=== PATIENT | male | born 1960 | race Caucasian/White ===

== ENCOUNTER 2018-09-15 11:34 | Day surgery (SDC) | payer BC, OTHER ==
[2018-09-13 16:00] VITALS: BMI 37.5
[~2018-09-15 11:34] MED LIST: LACTATED RINGERS 1,000 ML IV SCH
[2018-09-15 12:00] VITALS: TEMP 98
[2018-09-15] MEDS ORDERED: LIDOCAINE 1% 20 ML VIAL (10MG/ML) FOR IV START INTRADERMA ONE (12:02)
[2018-09-15] MEDS ORDERED: PROPOFOL 10 MG/ML 20 ML VIAL IV ONE (12:19)
--- NOTE | 2018-09-15 12:52 | P.PCN ---
Date of Procedure: 09/15/18 Procedure(s) Performed: Procedure: Total colonoscopy. Preoperative diagnosis: Screening for neoplasia, patient has history of anal fissure and rectal bleeding. Postoperative diagnosis: Mild sigmoid diverticulosis with no evidence of acute diverticulitis, strictures, significant polyps or tumors. Preparation: HalfLytely prep. Sedation: Was provided by anesthesia. Brief clinical history: The patient is a 58-year-old male who is scheduled for this evaluation for screening for neoplasia. No family history of colon cancer. He has history of intermittent rectal bleeding and anal fissure. He had no prior colonoscopy. Procedure: With the patient on his left lateral decubitus position and after informed consent and adequate sedation, the perianal area was inspected and it did show a very superficial posterior fissures as not bleeding at the time of this exam, and there was a nondraining fistulous opening posteriorly in the midline in the gluteal area. The were no masses felt on digital rectal examination. The Olympus CFH 190L video colonoscope was then inserted in the rectum in the usual fashion and advanced to the cecum. I intubated the ileocecal valve and examined the terminal ileum. Terminal ileum and colon appeared healthy. There were few scattered diverticular orifices seen in the sigmoid with no evidence of acute diverticulitis or strictures. I retroflexed the endoscope in the rectum before the endoscope was withdrawn. The patient tolerated the procedure well. Plan: The patient was reassured. Discussed dietary measures. He will follow up with you as planned and I recommended repeat exam in 10 years. I will see him in follow-up with his symptoms recur.
[2018-09-15 13:34] VITALS: BP 127/87; PULSE 80; RESP 18
== END 2018-09-15 13:47 | disposition home or self-care (01) ==
LOC: ORWHC2ENDO 11:34
DX: K62.5 Hemorrhage of anus and rectum (principal); Z87.19 Personal history of other diseases of the digestive system; I10 Essential (primary) hypertension; E78.5 Hyperlipidemia, unspecified; K57.30 Diverticulosis of large intestine without perforation or abscess without bleeding; E66.9 Obesity, unspecified; Z68.37 Body mass index [BMI] 37.0-37.9, adult; Z79.82 Long term (current) use of aspirin; Z79.899 Other long term (current) drug therapy
CPT/HCPCS: 45378; J2704

== ENCOUNTER 2023-08-06 13:01 | Emergency (ER) | payer BC ==
--- NOTE | 2023-08-06 13:23 | ED ---
General Adult HPI - General Chief complaint: Shortness of Breath Stated complaint: Dyspnea Time Seen by Provider: 08/06/23 13:08 Source: patient, RN notes reviewed Mode of arrival: ambulatory Limitations: no limitations - History of Present Illness Initial comments: Patient is a pleasant 62-year-old male present to the emergency department cough and dyspnea. Onset of symptoms was over a month ago. Patient has gained approximately 40 pounds in the last 2 to 3 months. Patient does have leg edema. Patient has orthopnea and exertional dyspnea. No chest pain. No history of similar symptoms previously. - Related Data Home Medications Medication Instructions Recorded Confirmed Aspirin [Adult Low Dose Aspirin EC] 81 mg PO DAILY 09/13/18 09/13/18 Diclofenac Sodium [Voltaren] 75 mg PO BID 09/13/18 09/13/18 Losartan Potassium 100 mg PO DAILY 09/13/18 09/13/18 Simvastatin [Zocor] 20 mg PO HS 09/13/18 09/13/18 amLODIPine [Norvasc] 5 mg PO DAILY 09/13/18 09/13/18 Previous Rx's Medication Instructions Recorded Furosemide [Lasix] 40 mg PO DAILY #5 tablet 08/06/23 Allergies Allergy/AdvReac Type Severity Reaction Status Date / Time No Known Allergies Allergy Verified 07/28/22 08:51 Review of Systems ROS Statement: Those systems with pertinent positive or pertinent negative responses have been documented in the HPI. ROS Other: All systems not noted in ROS Statement are negative. Constitutional: Denies: fever Eyes: Denies: eye pain ENT: Denies: ear pain Respiratory: Reports: as per HPI Cardiovascular: Reports: as per HPI, dyspnea on exertion, orthopnea, edema Gastrointestinal: Denies: vomiting Past Medical History Past Medical History: Hyperlipidemia, Hypertension Additional Past Medical History / Comment(s): Arthritis History of Any Multi-Drug Resistant Organisms: None Reported Past Surgical History: Orthopedic Surgery Additional Past Surgical History / Comment(s): ORIF RT ANKLE Past Anesthesia/Blood Transfusion Reactions: No Reported Reaction Past Psychological History: No Psychological Hx Reported Smoking Status: Former smoker Past Alcohol Use History: Occasional Past Drug Use History: None Reported - Past Family History Mother Family Medical History: Cancer Brother(s) Family Medical History: Cancer General Exam Limitations: no limitations General appearance: alert, in no apparent distress Head exam: Present: normocephalic Eye exam: Present: normal appearance Neck exam: Present: normal inspection Respiratory exam: Present: decreased breath sounds Cardiovascular Exam: Present: regular rate, normal rhythm GI/Abdominal exam: Present: soft. Absent: tenderness Extremities exam: Present: pedal edema. Absent: calf tenderness Neurological exam: Present: alert Psychiatric exam: Present: normal affect, normal mood Skin exam: Present: normal color Course Vital Signs 08/06/23 13:04 Temperature 98.2 F Pulse Rate 70 Respiratory 18 Rate Blood Pressure 148/88 O2 Sat by Pulse 94 L Oximetry EKG Findings - EKG Results: EKG: interpreted by ERMD (Left axis. Septal Q waves. Wide-complex QRS.), sinus rhythm, normal ST/T Medical Decision Making - Medical Decision Making Was pt. sent in by a medical professional or institution (TERRIE Maurer, CHIEF SCIENCE OFFICER, urgent care, hospital, or senior care...) When possible be specific @ -No Did you speak to anyone other than the patient for history (EMS, parent, family, police, friend...)? What history was obtained from this source @ -Family is present helps provide history including weight gain Did you review nursing and triage notes (agree or disagree)? Why? @ -I reviewed and agree with nursing and triage notes Were old charts reviewed (outside hosp., previous admission, EMS record, old EKG, old radiological studies, urgent care reports/EKG's, senior care records)? Report findings @ -No old charts were reviewed Differential Diagnosis (chest pain, altered mental status, abdominal pain women, abdominal pain men, vaginal bleeding, weakness, fever, dyspnea, syncope, headache, dizziness, GI bleed, back pain, seizure, CVA, palpatations, mental health, musculoskeletal)? @ -Differential Dyspnea: Coronary syndrome, arrhythmia, tamponade, asthma, COPD, pulmonary embolism, pneumonia, pneumothorax, pulmonary effusion, anaphylaxis, diabetic ketoacidosis, flailed chest, pulmonary contusion, diaphragmatic rupture, anemia, neuromuscular, this is not meant to be an all-inclusive list. EKG interpreted by me (3pts min.). @ -As above X-rays interpreted by me (1pt min.). @ -Chest x-ray shows no acute process CT interpreted by me (1pt min.). @ -None done U/S interpreted by me (1pt. min.). @ -None done What testing was considered but not performed or refused? (CT, X-rays, U/S, labs)? Why? @ -None What meds were considered but not given or refused? Why? @ -None Did you discuss the management of the patient with other professionals (professionals i.e. , PA, CHIEF SCIENCE OFFICER, lab, RT, psych nurse, outreach and education social worker, atomic fuel assembler, teacher, training systems officer, pillowcase cleaner)? Give summary @ -No Was smoking cessation discussed for >3mins.? @ -No Was critical care preformed (if so, how long)? @ -No Were there social determinants of health that impacted care today? How? (Homelessness, low income, unemployed, alcoholism, drug addiction, transportation, low edu. Level, literacy, decrease access to med. care, longterm, rehab)? @ -No Was there de-escalation of care discussed even if they declined (Discuss DNR or withdrawal of care, Hospice)? DNR status @ -Discussion regarding hospital admission however patient refuses stating he feels much better. Patient would like to go home and follow-up with his doctor What co-morbidities impacted this encounter? (DM, HTN, Smoking, COPD, CAD, Cancer, CVA, ARF, Chemo, Hep., AIDS, mental health diagnosis, sleep apnea, morbid obesity)? @ -None Was patient admitted / discharged? Hospital course, mention meds given and route, prescriptions, significant lab abnormalities, going to OR and other pertinent info. @ -Patient reevaluated and feels significantly better following Lasix. Patient states his breathing is doing well. Pulse ox 95% on room air. Patient and f wesy are updated on results. Patient does request discharge home. Undiagnosed new problem with uncertain prognosis? @ -No Drug Therapy requiring intensive monitoring for toxicity (Heparin, Nitro, Insulin, Cardizem)? @ -No Were any procedures done? @ -No Diagnosis/symptom? @ -edema Acute, or Chronic, or Acute on Chronic? @ -Acute Uncomplicated (without systemic symptoms) or Complicated (systemic symptoms)? @ -Default Side effects of treatment? @ -No Exacerbation, Progression, or Severe Exacerbation? @ -No Poses a threat to life or bodily function? How? (Chest pain, USA, CA, pneumonia, PE, COPD, DKA, ARF, appy, cholecystitis, CVA, Diverticulitis, Homicidal, Suicidal, threat to staff... and all critical care pts) @ -No - Lab Data Result diagrams: 08/06/23 13:27 08/06/23 13:27 Lab Results 08/06/23 08/06/23 08/06/23 Range/Units 13:27 13:27 13:27 WBC 7.9 (3.8-10.6) k/uL RBC 4.50 (4.30-5.90) m/uL Hgb 13.9 (13.0-17.5) gm/dL Hct 42.7 (39.0-53.0) % MCV 95.0 (80.0-100.0) fL MCH 31.0 (25.0-35.0) pg MCHC 32.6 (31.0-37.0) g/dL RDW 13.6 (11.5-15.5) % Plt Count 255 (150-450) k/uL MPV 7.5 Neutrophils % 63 % Lymphocytes % 22 % Monocytes % 5 % Eosinophils % 5 % Basophils % 1 % Neutrophils # 5.0 (1.3-7.7) k/uL Lymphocytes # 1.8 (1.0-4.8) k/uL Monocytes # 0.4 (0-1.0) k/uL Eosinophils # 0.4 (0-0.7) k/uL Basophils # 0.1 (0-0.2) k/uL PT 10.1 (10.0-12.5) sec INR 0.9 (<1.2) APTT 26.9 (22.0-30.0) sec Sodium 143 (137-145) mmol/L Potassium 4.7 (3.5-5.1) mmol/L Chloride 107 (98-107) mmol/L Carbon Dioxide 28 (22-30) mmol/L Anion Gap 8 mmol/L BUN 22 H (9-20) mg/dL Creatinine 0.85 (0.66-1.25) mg/dL Est GFR (CKD-EPI)AfAm >90 (>60 ml/min/1.73 sqM) Est GFR (CKD-EPI)NonAf >90 (>60 ml/min/1.73 sqM) Glucose 93 (74-99) mg/dL Calcium 9.5 (8.4-10.2) mg/dL Magnesium 2.0 (1.6-2.3) mg/dL Total Bilirubin 0.7 (0.2-1.3) mg/dL AST 32 (17-59) U/L ALT 30 (4-49) U/L Alkaline Phosphatase 54 (38-126) U/L Troponin I (0.000-0.034) ng/mL NT-Pro-B Natriuret Pep 592 pg/mL Total Protein 7.2 (6.3-8.2) g/dL Albumin 4.5 (3.5-5.0) g/dL 08/06/23 Range/Units 13:27 WBC (3.8-10.6) k/uL RBC (4.30-5.90) m/uL Hgb (13.0-17.5) gm/dL Hct (39.0-53.0) % MCV (80.0-100.0) fL MCH (25.0-35.0) pg MCHC (31.0-37.0) g/dL RDW (11.5-15.5) % Plt Count (150-450) k/uL MPV Neutrophils % % Lymphocytes % % Monocytes % % Eosinophils % % Basophils % % Neutrophils # (1.3-7.7) k/uL Lymphocytes # (1.0-4.8) k/uL Monocytes # (0-1.0) k/uL Eosinophils # (0-0.7) k/uL Basophils # (0-0.2) k/uL PT (10.0-12.5) sec INR (<1.2) APTT (22.0-30.0) sec Sodium (137-145) mmol/L Potassium (3.5-5.1) mmol/L Chloride (98-107) mmol/L Carbon Dioxide (22-30) mmol/L Anion Gap mmol/L BUN (9-20) mg/dL Creatinine (0.66-1.25) mg/dL Est GFR (CKD-EPI)AfAm (>60 ml/min/1.73 sqM) Est GFR (CKD-EPI)NonAf (>60 ml/min/1.73 sqM) Glucose (74-99) mg/dL Calcium (8.4-10.2) mg/dL Magnesium (1.6-2.3) mg/dL Total Bilirubin (0.2-1.3) mg/dL AST (17-59) U/L ALT (4-49) U/L Alkaline Phosphatase (38-126) U/L Troponin I 0.012 (0.000-0.034) ng/mL NT-Pro-B Natriuret Pep pg/mL Total Protein (6.3-8.2) g/dL Albumin (3.5-5.0) g/dL Disposition Clinical Impression: Edema Disposition: HOME SELF-CARE Condition: Stable Instructions (If sedation given, give patient instructions): Heart Failure (ER), Leg Edema (ED), Edema (ED) Additional Instructions: Please do follow-up with primary care physician beginning of the week. Return for chest pain, difficulty breathing, fever, worsening or changing symptoms, increased welling or other concerns. Prescription sent to pharmacy. Prescriptions: Furosemide [Lasix] 40 mg PO DAILY #5 tablet Is patient prescribed a controlled substance at d/c from ED?: No Referrals: Jonnie Oakley DO [Primary Care Provider] - 1-2 days Time of Disposition: 14:51
[2023-08-06 13:28] VITALS: RESP 18; TEMP 98.2
[2023-08-06 13:39] LABS: Basophils # (A) 0.1 k/uL (0-0.2); Basophils % (A) 1 %; Eosinophils # (A) 0.4 k/uL (0-0.7); Eosinophils % (A) 5 %; HCT 42.7 % (39.0-53.0); HGB 13.9 gm/dL (13.0-17.5); Lymphocytes # (A) 1.8 k/uL (1.0-4.8); Lymphocytes % (A) 22 %; MCHC 32.6 g/dL (31.0-37.0); Mean Platelet Volume 7.5; Monocytes # (A) 0.4 k/uL (0-1.0); Monocytes % (A) 5 %; Neutrophils % (A) 63 %; Platelet Count 255 k/uL (150-450); RDW 13.6 % (11.5-15.5); WBC 7.9 k/uL (3.8-10.6)
[2023-08-06 13:49] LABS: INR 0.9 (<1.2); Partial Thromboplastin Time 26.9 sec (22.0-30.0); Prothrombin Time 10.1 sec (10.0-12.5)
[2023-08-06] MEDS: FUROSEMIDE 10 MG/ML 4 ML VIAL IV STA (13:49)
[2023-08-06] MEDS: NITROGLYCERIN OINT 1 INCH/GM PACKET TOPICAL STA (13:50)
[2023-08-06 13:59] LABS: ALT 30 U/L (4-49); AST 32 U/L (17-59); African American GFR (CKD) >90 (>60 ml/min/1.73 sqM); Albumin 4.5 g/dL (3.5-5.0); Alkaline Phosphatase 54 U/L (38-126); Anion Gap 8 mmol/L; Blood Urea Nitrogen 22 mg/dL (9-20); Calcium 9.5 mg/dL (8.4-10.2); Carbon Dioxide 28 mmol/L (22-30); Chloride 107 mmol/L (98-107); Glucose 93 mg/dL (74-99); Non-African American GFR(CKD) >90 (>60 ml/min/1.73 sqM); Potassium 4.7 mmol/L (3.5-5.1); Sodium 143 mmol/L (137-145); Total Bilirubin 0.7 mg/dL (0.2-1.3); Total Protein 7.2 g/dL (6.3-8.2)
[2023-08-06 14:05] LABS: NT-Pro-B-Type Natriuretic Pept 592 pg/mL
--- NOTE | 2023-08-06 14:39 | XR ---
EXAMINATION TYPE: XR chest 2V DATE OF EXAM: 08/06/2023 COMPARISON: NONE HISTORY: Difficulty breathing. TECHNIQUE: Frontal and lateral views of the chest are obtained. FINDINGS: There is no focal air space opacity, pleural effusion, or pneumothorax seen. The cardiac silhouette size is within normal limits. The osseous structures are intact. IMPRESSION: No acute cardiopulmonary process.
[2023-08-06 15:40] VITALS: BP 146/89; PULSE 69
== END 2023-08-06 15:11 | disposition home or self-care (01) ==
LOC: EC 13:01
DX: R60.0 Localized edema (principal); R06.02 Shortness of breath; R05.9 Cough, unspecified; I10 Essential (primary) hypertension; E78.5 Hyperlipidemia, unspecified; Z79.82 Long term (current) use of aspirin; Z79.899 Other long term (current) drug therapy; Z87.891 Personal history of nicotine dependence
CPT/HCPCS: 36415; 93005; 83880; 80053; 83605; 83735; 84484; 85025; 85610; 85730; 71046; 99285; 96374; J1940

== ENCOUNTER → 2023-08-24 | Outpatient (CLI) | payer BC ==
--- NOTE | 2023-08-24 13:50 | CA ---
Transthoracic Echo Report Name: Antwan Tam Age: 63 Gender: M : 1960 Exam Date: 08/24/2023 09:06 Exam Location: [place] Echo Ht (in): 68 Wt (lb): 275 Ordering Physician: Jonnie Oakley DO Attending/Referring Phys: Lizzie Henriquez [facility] Fashion Consultant Selling Dharmesh Bui RDCS Procedure CPT: Indications: R06.09 Other forms of dyspnea Cardiac Hx: Technical Quality: Technically difficult study Contrast 1: Definity Total Dose (mL): 3 Contrast 2: Total Dose (mL): MEASUREMENTS (Male / Female) Normal Values 2D ECHO LV Diastolic Diameter PLAX 5.8 cm 4.2 - 5.9 / 3.9 - 5.3 cm LV Systolic Diameter PLAX 3.8 cm IVS Diastolic Thickness 1.6 cm 0.6 - 1.0 / 0.6 - 0.9 cm LVPW Diastolic Thickness 1.3 cm 0.6 - 1.0 / 0.6 - 0.9 cm LV Relative Wall Thickness 0.5 LVOT Diameter 2.2 cm Aortic Root Diameter 2.6 cm LA Systolic Diameter LX 4.8 cm 3.0 - 4.0 / 2.7 - 3.8 cm LA Volume 70.3 cm??? 18 - 58 / 22 - 52 cm??? LA Volume Index 28.0 cm???/m??? 16 - 28 cm???/m??? DOPPLER AV Peak Velocity 150.4 cm/s AV Peak Gradient 9.0 mmHg AV Mean Velocity 97.8 cm/s AV Mean Gradient 4.2 mmHg AV Velocity Time Integral 27.1 cm LVOT Peak Velocity 87.9 cm/s LVOT Peak Gradient 3.1 mmHg LVOT Velocity Time Integral 15.9 cm LVOT Stroke Volume 61.5 cm??? LVOT Stroke Volume Index 26.3 ml/m??? AV Area Cont Eq vti 2.3 cm??? AV Area Cont Eq pk 2.3 cm??? Mitral E Point Velocity 72.0 cm/s Mitral A Point Velocity 73.4 cm/s Mitral E to A Ratio 1.0 MV Deceleration Time 189.4 ms MV E' Velocity 7.4 cm/s Mitral E to MV E' Ratio 9.8 PV Peak Velocity 88.2 cm/s PV Peak Gradient 3.1 mmHg FINDINGS Left Ventricle Left ventricular ejection fraction is estimated at 35-40 %. Normal left ventricular systolic function with no obvious regional wall motion abnormalities. Moderate global hypokinesis. Moderate hypertrophy Right Ventricle Normal right ventricular size and function. Unable to estimate the right ventricular systolic pressure. Right Atrium Normal right atrial size. Left Atrium Moderately increased left atrial diameter. Mitral Valve Mild mitral regurgitation.structurally normal mitral valve. Aortic Valve No aortic regurgitation.aortic valve not well visualized. Tricuspid Valve Trace tricuspid regurgitation.structurally normal tricuspid valve. Pulmonic Valve No pulmonic regurgitation.pulmonic valve not well visualized. Pericardium No pericardial effusion. Aorta Normal size aortic root and proximal ascending aorta. CONCLUSIONS Technically difficult study. Definity ECHO contrast used for improved visualization of the endocardial borders (inadequate visualization of two or more contiguous segments). Moderate global hypokinesis moderate impairment of the left ventricle systolic function Very limited Doppler study Previewed by: Dr. Charito Linton MD (Electronically Signed) Final Date: 24 August 2023 13:49
--- NOTE | 2023-08-24 13:51 | CA ---
Lexiscan Nuclear Stress Test Report Name: Antwan Tam Exam Date: 08/24/2023 10:14 Exam Location: [place] Stress Ht (in): 68 Wt (lb): 275 BSA: 2.34 Ordering Phys: Jonnie Oakley DO Referring Phys: Lizzie Henriquez Technologist: JEWELS COELHO Age: 63 Gender: M : 1960 Procedure CPT: Indications: R06.09 Other forms of dyspnea ICD-10 Codes: Patient History: ISHMAEL, HTN, ELEVATED CHOLESTEROL LEVELS, FAMILY HX OF HEART DISEASE Medications: AMLODIPINE, FUROSEMIDE, LOSARTAN, DICLOFENAC, SIMVASTATIN, SERTRALINE, BUPROPION Meds past 24 hrs: Pretest Chest Pain: STRESS TEST Lexiscan Protocol Exercise Duration (min:sec): 01:[address] Depressions (mm): Angina Score: Arreaga Score: Resting HR (bpm): 66 Peak HR (bpm): 75 Resting BP (mmHg): 140 / 93 Peak BP (mmHg): 140 / 90 MPHR: 158 Target HR: 134 % MPHR: 47 METS: 1.0 Total Dose: Peak Dose: Atropine: Double Product: 68964 BP Response: Stress Termination: INFUSION COMPLETE Stress Symptoms: DYSPNEA Stress Summary: ECG ANALYSIS Resting ECG: Sinus rhythm. Left bundle branch block. No arrhythmias. Nonspecific ST-T abnormality. Stress ECG: No ECG changes from baseline with Lexiscan infusion with occasional PVCs. CONCLUSIONS No ECG evidence of ischemia with Lexiscan infusion. Nuclear test results to follow. Dr. Charito Linton MD (Electronically Signed) Final Date: 24 August 2023 13:50
--- NOTE | 2023-08-25 11:11 | NM ---
EXAMINATION TYPE: NM stress lexiscan cardiolite DATE OF EXAM: 08/24/2023 COMPARISON: NONE CLINICAL INDICATION: Male, 63 years old with history of R06.09 OTHER FORMS OF DYSPNEA; TECHNIQUE: After the intravenous administration of 9.05 mCi Tc 99m Sestamibi - Cardiolite resting SP ECT images acquired 58 minutes post injection. The patient received 0.4mg Lexiscan, 25.4 mCi Tc 99m Sestamibi - Stress images obtained [address] injection FINDINGS: Review of stress and rest SPECT images demonstrates a large predominantly fixed defect involving the inferior septal and apical portions of the myocardium. Small area of stress-induced reversible ischem ia involving the apex not excluded.. Gated analysis shows a reduced wall motion with an estimated le ft ventricular ejection fraction of 28 %. IMPRESSION: 1. Large fixed defect apex myocardium system with remote ischemia.. A small area of stress-induced re versible ischemia in the apex not excluded correlate clinically. 2. Abnormal ejection fraction of only 28% with reduced wall motion activity. A [place] level critical message alert has been initiated for Jonnie Oakley DO via the [employer] Critical Results System on 08/25/2023 11:09 AM. This message alert has been sent to Jonnie angela DO via the preferences provided by the clinician for the receipt of Radiology Critical Findings . Message ID [id number].
== END | disposition home or self-care (01) ==
LOC: RADNMMAIN 08:12
PROVIDERS: ATTEND Family Medicine
DX: I11.9 Hypertensive heart disease without heart failure (principal); E78.00 Pure hypercholesterolemia, unspecified; R06.09 Other forms of dyspnea
CPT/HCPCS: 93017; 93306; 78452; A9500; Q9957